=== PATIENT | female | born 1980 ===

== ENCOUNTER 2020-02-03 22:43 | Inpatient (IN) | payer OTHER ==
[~2020-02-03] VITALS: Ht 170.2 cm; Wt 72.6 kg
[2020-02-04] MEDS ORDERED: PRENATAL TABLE1 EAC1 PO (03:56)
== END 2020-02-07 13:01 | disposition home or self-care (01) | DRG 807 ==
LOC: OBS/DEL 22:43 → LDR 02-04 00:32 → SURG-SUITE 02-04 00:32 → LDR 02-06 15:09 → SURG-SUITE 02-06 15:45
PROVIDERS: ADMIT Specialist
PROC: 10E0XZZ Delivery of Products of Conception, External Approach (ICD-10-PCS; principal; 2020-02-04)
PROC: 3E033VJ Introduction of Other Hormone into Peripheral Vein, Percutaneous Approach (ICD-10-PCS; 2020-02-04)
PROC: 0W8NXZZ Division of Female Perineum, External Approach (ICD-10-PCS; 2020-02-04)
PROC: 4A1HXFZ Monitoring of Products of Conception, Cardiac Rhythm, External Approach (ICD-10-PCS; 2020-02-04)
PROC: BW28ZZZ Computerized Tomography (CT Scan) of Head (ICD-10-PCS; 2020-02-04)
PROC: BW38YZZ Magnetic Resonance Imaging (MRI) of Head using Other Contrast (ICD-10-PCS; 2020-02-06)
DX: O15.2 Eclampsia complicating the puerperium (principal); Z37.0 Single live birth; Z3A.38 38 weeks gestation of pregnancy
CPT/HCPCS: 70496; 70552